=== PATIENT | female | born 1990 | race Two or more races ===

== ENCOUNTER 2018-12-13 10:57 | Emergency (ER) | payer SELFPAY ==
[2018-12-13 11:13] VITALS: BP 149/108
--- NOTE | 2018-12-13 11:31 | ER Document Report ---
HPI - HPI Time Seen by Provider: 12/13/18 11:27 Pain Level: 5 Notes: Patient is a 28-year-old female with no significant past medical history who presents complaining of left ear pain x3 days. [place] her symptoms. She is able to eat and drink without difficulty. She is urinating normally. Denies drug allergies. No other concerns or complaints. Denies any headache, fever, head injury, neck pain, URI, sore throat, chest pain, palpitations, syncope, cough, shortness of breath, wheeze, dyspnea, abdominal pain, nausea/vomiting/diarrhea, urinary retention, dysuria, hematuria, or rash. - ROS Systems Reviewed and Negative: Yes All other systems reviewed and negative - REPRODUCTIVE Reproductive: DENIES: : Past Medical History - Social History Smoking Status: Current Every Day Smoker Family History: Reviewed & Not Pertinent Vertical Provider Document - CONSTITUTIONAL Agree With Documented VS: No - HR 98 during exam Notes: PHYSICAL EXAMINATION: GENERAL: Well-appearing, well-nourished and in no acute distress. A&Ox4. Answers questions appropriately. Moves comfortably w/o notable distress HEAD: Atraumatic, normocephalic. EYES: Pupils equal round and reactive to light, extraocular movements intact, sclera anicteric, conjunctiva are normal. ENT: Lt EAC tender, scant discharge w/o significant swelling/occlusion. Rt EAC wnl. + Tenderness to tragus Lt. No mastoid tenderness bilaterally. TM's intact b/l without erythema, fluid, or perforation. Nares patent and without discharge. oropharynx no erythema without exudates. No tonsilar hypertrophy without erythema or exudate. No palatine shift. Uvula midline. No tongue protrusion. No drooling, hoarseness, or airway compromise. Moist mucous membranes. No sinus tenderness. NECK: Normal range of motion, supple without lymphadenopathy. No rigidity/meningismus. LUNGS: Breath sounds clear to auscultation bilaterally and equal. No wheezes rales or rhonchi. No retractions HEART: Regular rate and rhythm without murmurs, rubs, gallops. NEUROLOGICAL: Normal speech, normal gait. PSYCH: Normal mood, normal affect. SKIN: Warm, Dry, normal turgor, no rashes or lesions noted. - INFECTION CONTROL TRAVEL OUTSIDE OF THE [place] IN LAST 30 DAYS: No Course - Re-evaluation Re-evalutation: 12/13/18 11:34 Patient is an afebrile, well-hydrated, 28 year-old female who presents with acute otitis externa of the left ear. Vitals are acceptable without significant tachycardia, tachypnea, or hypoxia. PE is otherwise unremarkable. Patient is nontoxic-appearing and is tolerating p.o. without difficulty. No ear wick warranted at this time. No further work-up warranted. Low suspicion for any sepsis, meningitis, severe dehydration, respiratory compromise, mastoiditis, or other systemic emergent condition at this time. Patient is aware that condition can change from initial presentation and she needs to monitor symptoms closely and seek medical attention with any acute changes. Rx for ciprodex. Recheck with your PCM in 3 to 5 days. Consider consult with ENT. Return to the ED with any other worsening/concerning symptoms. Patient is in agreement. - Vital Signs Vital signs: Temp Pulse Resp BP Pulse Ox 98.8 F 128 H 18 149/108 H 97 12/13/18 11:12 12/13/18 11:12 12/13/18 11:12 12/13/18 11:12 12/13/18 11:12 Discharge - Discharge Clinical Impression: Acute otitis externa of left ear Qualifiers: Otitis externa type: unspecified type Qualified Code(s): H60.502 - Unspecified acute noninfective otitis externa, left ear Condition: Stable Disposition: HOME, SELF-CARE Instructions: Use of Ear Drops ([facility]), Otitis Externa ([facility]) Additional Instructions: Maintain adequate fluid intake Take meds as directed Avoid swimming tylenol/ibuprofen as needed Avoid Q-tips in the ears over the counter cold medication as needed for symptoms F/u: with your PCM in 3-5 days for a recheck Consider consult with ENT Return to the ED with any fever, dizziness, tinnitus, headaches, worsening pain, chest pain, palpitations, syncope, neck pain/stiffness, shortness of breath, wheezing, drooling, trouble swallowing/breathing, abdominal pain, n/v/d, rash, or worsening/concerning symptoms otherwise. Prescriptions: Ciprofloxacin HCl/Dexameth [Ciprodex Otic Suspension 7.5 ml Bottle] 4 drop OT BID #1 bottle Forms: Elevated Blood Pressure, Smoking Cessation Education Referrals: ARNAV NYE DO [ASSOCIATE] - Follow up as needed
== END 2018-12-13 11:35 | disposition home or self-care (01) ==
LOC: ER 10:57
DX: H60.502 Unspecified acute noninfective otitis externa, left ear (principal); H92.02 Otalgia, left ear
CPT/HCPCS: 99282

== ENCOUNTER 2020-03-04 17:39 | Emergency (ER) | payer MEDICAID ==
[2020-03-04 17:48] VITALS: BP 152/107
[2020-03-04] MEDS ORDERED: CIPROFLOXACIN HCL/DEXAMETH OTIC DROP 7.5 ML AD ONE (18:14)
--- NOTE | 2020-03-04 18:15 | ER Document Report ---
HPI - HPI Patient complains to provider of: Right ear pain Time Seen by Provider: 03/04/20 18:06 Onset/Duration: Persistent Quality of pain: Achy Pain Level: 4 Context: Patient presents complaining of right ear pain for the past 3 days. Patient is uncertain if she may have had a fever. Patient denies any cough or cold symptoms. Patient denies any drainage from the ear. Associated Symptoms: Earache. denies: Nonproductive cough, Productive cough, Headache Exacerbated by: Denies Relieved by: Denies Similar symptoms previously: Yes Recently seen / treated by doctor: No - ROS ROS below otherwise negative: Yes Systems Reviewed and Negative: Yes All other systems reviewed and negative - EENT EENT: REPORTS: Ear Pain. DENIES: Congestion - CARDIOVASCULAR Cardiovascular: DENIES: Chest pain - RESPIRATORY Respiratory: DENIES: Coughing - GASTROINTESTINAL Gastrointestinal: DENIES: Patient vomiting - REPRODUCTIVE Reproductive: DENIES: : - MUSCULOSKELETAL Musculoskeletal: DENIES: Neck Pain - DERM Skin Color: Normal Skin Problems: None Past Medical History - General Information source: Patient - Social History Smoking Status: Never Smoker Frequency of alcohol use: None Drug Abuse: None Family History: Reviewed & Not Pertinent - Medical History Medical History: Negative Renal/ Medical History: Denies: Hx Peritoneal Dialysis Past Surgical History: Reports: Hx Section, Hx Cholecystectomy - Immunizations Immunizations up to date: Yes Vertical Provider Document - CONSTITUTIONAL Agree With Documented VS: Yes Exam Limitations: No Limitations General Appearance: WD/WN, No Apparent Distress - INFECTION CONTROL TRAVEL OUTSIDE OF THE [place] IN LAST 30 DAYS: No - HEENT HEENT: Atraumatic, Normocephalic. negative: Pharyngeal Exudate, Pharyngeal Tenderness, Pharyngeal Erythema Notes: Patient with tenderness with movement of right helix, right external auditory canal swelling with minimal debris, right TM unable to be visualized due to swelling. No mastoid tenderness or swelling. - NECK Neck: Normal Inspection, Supple - RESPIRATORY Respiratory: Breath Sounds Normal, No Respiratory Distress - CARDIOVASCULAR Cardiovascular: Regular Rate, Regular Rhythm - MUSCULOSKELETAL/EXTREMETIES Musculoskeletal/Extremeties: MAEW - NEURO Level of Consciousness: Awake, Alert, Appropriate Motor/Sensory: No Motor Deficit - DERM Integumentary: Warm, Dry, No Rash Course - Re-evaluation Re-evalutation: 03/04/20 18:25 Patient with symptoms worrisome for right otitis externa, no concern for malignant otitis or mastoiditis. Patient otherwise nontoxic in appearance. Ear wick was placed and drops were administered. Patient tolerated procedure well. - Vital Signs Vital signs: Temp Pulse Resp BP Pulse Ox 99.1 F 112 H 18 152/107 H 93 03/04/20 17:45 03/04/20 17:45 03/04/20 17:45 03/04/20 17:45 03/04/20 17:45 Discharge - Discharge Clinical Impression: Otitis externa Qualifiers: Otitis externa type: unspecified type Chronicity: acute Laterality: right Qualified Code(s): H60.501 - Unspecified acute noninfective otitis externa, right ear Condition: Stable Disposition: HOME, SELF-CARE Instructions: Use of Ear Drops ([facility]), Using Ear Drops with a Wick ([facility]), Otitis Externa ([facility]) Additional Instructions: Return immediately for any new or worsening symptoms Followup with your primary care provider, call tomorrow to make a followup appointment Instill Ciprodex eardrops 4 to right ear twice a day for 7 days. Referrals: [facility] [Provider Group] - Follow up as needed
[2020-03-04] MEDS ORDERED: HYDROCODONE/ACETAMINOPHEN 5-325 MG (6 TAB/ER DISP) PO PRN (18:22)
== END 2020-03-04 18:39 | disposition home or self-care (01) ==
LOC: ER 17:39
DX: H60.501 Unspecified acute noninfective otitis externa, right ear (principal)
CPT/HCPCS: 99283; J3490